=== PATIENT | male | born 1960 | race Two or more races ===

== ENCOUNTER 2023-06-05 23:34 | Emergency (ER) | payer BC, SELFPAY ==
[2023-06-05 23:52] VITALS: BP 142/84; PULSE 78; RESP 18; TEMP 37; O2SAT 96; BMI 24.2
--- NOTE | 2023-06-06 00:09 | ED_ITS ---
Prior to being discharged the patient's called me into the room because he was having bleeding from his right nostril. The patient states that his nose was really dry and he was rubbing it vigorously from the outside when it started bleeding. He is not having any bleeding from his posterior pharynx. A nasal clamp was applied and Varghese-Synephrine was instilled into the right nostril and a Merocel dressing was placed into the nostril. HPI - Abdominal Pain General Chief Complaint: Abdominal Pain Stated Complaint: ABD PAIN Time Seen by Provider: 06/06/23 00:08 Source: patient and family Mode of arrival: Wheelchair History of Present Illness HPI narrative: This 62-year-old male with a history of heavy tobacco use is brought emergency department by his significant other for evaluation of acute onset of right lower quadrant abdominal pain. The pain started abruptly around 9 PM. He is not having any nausea or vomiting. He does not have a history of kidney stones. He does have some generalized back pain. He denies any radiation of the pain into his scrotum, testicles or upper abdomen. He not been having any diarrhea. He is status post appendectomy. His also states that they were seen by a colleague of their family physician because the patient has recently lost 30 pounds and has been complaining of pain with swallowing. She did a strep screen and referred him to ENT. The patient states he has not been eating well because it hurts when he swallows and he feels that is likely why he has lost so much weight. She is concerned that he may have throat cancer. The patient's now thinks that he has a raging infection throughout his entire body. He does not have a fever. He states that he does not urinate normally because he is 63. He denies any dysuria or hematuria. Related Data Home Medications Medication Instructions Recorded Confirmed rosuvastatin 10 mg tablet (Crestor) 10 mg PO DAILY 06/05/23 06/05/23 Allergies Allergy/AdvReac Type Severity Reaction Status Date / Time No Known Drug Allergies Allergy Verified 06/05/23 23:57 Review of Systems ROS Status of ROS 10 or more systems reviewed and unremarkable except as noted in history and below PFSH PFSH Social History Smoking status: Current every day smoker Exam Narrative Exam Narrative: Nurses note and vital signs reviewed and patient is not hypoxic. General: Thin, uncomfortable appearing adult male, he is lying in a position on the stretcher, no respiratory distress, he moves easily about the stretcher and is holding his right lower quadrant and tearful. Skin: Warm, dry, no pallor noted. There is no rash noted. Head: Normocephalic, atraumatic Eye: Normal conjunctiva, no drainage, EOMI. PERRL Ears, Nose, Mouth, and Throat: oral mucosa is moist. Nares patent. Mouth without vesicles. No swelling of the tongue, uvula or pharyngeal soft tissues Neck: There are 2, firm nodules in the anterior cervical chain, one is located on the left and one is located on the right. They do not appear to be particularly mobile. They're not tender, fluctuant or erythematous. The neck is otherwise supple with no meningeal signs. Cardiovascular: Regular Rate and Rhythm, No murmurs rubs or gallops appreciated Respiratory: Patient is in no distress, no accessory muscle use, lungs are clear to auscultation, no wheezing, rales or rhonchi Back: non-tender, no CVA tenderness bilaterally to percussion. GI: Normal bowel sounds, There is a large incision in the right lower quadrant of the abdominal wall. The patient is pushing in this area stating this is where his he is having severe pain. There is no pulsatile masses. There is no reproducible tenderness in this area. There no tenderness in the right upper quadrant, left upper quadrant or left lower quadrant. There is no tenderness over the urinary bladder. The abdomen is flat. Femoral pulses are brisk and equal bilaterally Musculoskeletal: The patient has no evidence of calf tenderness, no pitting edema, symmetrical pulses noted bilaterally Neurological: A&O x4, normal speech Psychiatric: Cooperative Constitutional Vital Signs, click to edit/add: Last Vital Signs Temp 98.6 F 06/05/23 23:52 Pulse 78 06/05/23 23:52 Resp 18 06/05/23 23:52 BP 142/84 H 06/05/23 23:52 Pulse Ox 96 06/05/23 23:52 Course Course Hospital Course: Pt was medicated with IV fluids, Zofran and Dilaudid with control of his pain. After CT scan his pain recurred and he was given an additional dose of Dilaudid. Vital Signs Vital signs: Vital Signs Temperature 98.6 F 06/05/23 23:52 Pulse Rate 78 06/05/23 23:52 Respiratory Rate 18 06/05/23 23:52 Blood Pressure 142/84 H 06/05/23 23:52 Pulse Oximetry 96 06/05/23 23:52 Temperature 98.6 F 06/05/23 23:52 Pulse Rate 78 06/05/23 23:52 Respiratory Rate 18 06/05/23 23:52 Blood Pressure 142/84 H 06/05/23 23:52 Pulse Oximetry 96 06/05/23 23:52 MDM - Abdominal Pain MDM Narrative Medical decision making narrative: This 62-year-old male presents to emergency department for evaluation of acute onset of right lower quadrant abdominal pain. He is status post appendectomy in the past. He has a large well-healed incision in the right lower quadrant. His abdomen is otherwise soft. He denies any nausea or vomiting. She has normal pulses. He does appear to be in a moderate amount of pain upon arrival and an IV was placed and he was given a milligram of IV Dilaudid and Zofran as well as IV fluids. The patient's is also concerned because he has had approximately 30 pound weight loss in the past 3 months and is having pain with swallowing. He was seen by his family physician and referred to Dr. Lima , ENT, in [place] later this month. He does have 2, nontender anterior cervical lymph nodes which are concerning for malignancy. HEENT exam was otherwise normal. The patient states that he has pain with swallowing so he has not been eating much which is why he thinks that he has lost so much weight. Routine labs were ordered and are reviewed. He has a normal white count and hemoglobin. Comprehensive metabolic profile was normal. His urinalysis showed blood but no sign of infection. Consulted with radiology and ordered both a CT scan of the neck with IV contrast and CT scan of abdomen and pelvis with IV contrast. The results of the CT scans were discussed with the patient and his and they were given a copy of both CT scans. The CT scan of the abdomen and pelvis was negative with the exception of a 1.8 cm soft tissue nodular density in the left anterior posterior urinary bladder worrisome for potential neoplastic process. There was otherwise no acute findings in the right lower quadrant and the appendix was noted to be missing. The CT scan of the neck showed an enhancing irregular soft tissue mass at the level of the epiglottis extending caudally involving the right visceral space of the neck extending along the anterior midline involving the left visceral space involvement of the right posterior pharyngeal mucosal space. The mass measured approximately 3.6 cm in greatest transverse dimensions, 1.4 cm in AP dimension approximately 2.8 cm craniocaudal dimensions. 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 Further evaluation with direct visualization and are patent or CT scanning for further staging was suggested. There was also prominent lymph nodes with rounded configuration and mild enhancement along the right level III station measuring 9 mm and additional slightly enlarged lymph node in the right level for station measuring 1.2 cm suspicious for metastatic lymph nodes. The patient does have a follow-up scheduled with ENT. I suggested that he call the ear nose and throat doctor later today and try to get an appointment as soon as possible. He was also given referral information for oncology. The patient's abdominal pain seemed to be resolving. He did request something for pain if the pain should current was given a prescription for Percocet and also Colace. His right lower quadrant abdominal pain is possibly related to bowel spasm. There is no sign of any abscess, hernia or other notable abnormality in the right lower quadrant of the abdomen. To being discharged I was called to the room because the patient started having some bleeding from his right nostril. 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 He rubb ed his nose vigorously from the outside in his right nostril started bleeding. A nasal clamp was applied with control of the bleeding. I then instilled Afrin into the nose and had him gently blow to remove any clots and placed a Merocel into the nasal canal. There was no recurrent nasal bleeding after this was placed. He is instructed to gently remove the packing in 24 hours. Lab Data Labs: Lab Results 06/06/23 06/06/23 Range/Units 00:02 01:59 WBC 10.7 (4.0-11.0) 10^3/uL RBC 4.29 L (4.70-6.10) 10^6/uL Hgb 12.0 L (14.0-18.0) g/dL Hct 37.2 L (42.0-54.0) % MCV 86.7 (80.0-94.0) fL MCH 28.0 (25.9-34.0) pg MCHC 32.3 (29.9-35.2) g/dL RDW 12.9 (11.0-15.0) % Plt Count 307 (150-450) 10^3/uL MPV 10.3 (9.5-13.5) fL Neut % (Auto) 81.4 H (43.0-75.0) % Lymph % (Auto) 12.4 L (20.5-60.0) % [place] % (Auto) 5.1 (1.7-12.0) % Eos % (Auto) 0.3 L (0.9-7.0) % Baso % (Auto) 0.4 (0.2-2.0) % Neut # (Auto) 8.7 H (1.4-6.5) 10^3/uL Lymph # (Auto) 1.3 (1.2-3.8) 10^3/uL [place] # (Auto) 0.5 (0.3-0.8) 10^3/uL Eos # (Auto) 0.0 (0.0-0.7) 10^3/uL Baso # (Auto) 0.0 (0.0-0.1) 10^3/uL Abs Immat Gran (auto) 0.04 H (0.00-0.03) 10^3/uL Imm/Tot Granulo (auto) 0.4 (0.0-0.5) % Sodium 140 (136-145) mmol/L Potassium 3.9 (3.5-5.1) mmol/L Chloride 104 (98-107) mmol/L Carbon Dioxide 26.0 (21.0-32.0) mmol/L Anion Gap 13.9 BUN 16.0 (7.0-18.0) mg/dL Creatinine 1.08 (0.70-1.30) mg/dL Est GFR ( Amer) >60 (>=60) Est GFR (Non-Af Amer) >60 (>=60) BUN/Creatinine Ratio 14.8 Glucose 144 H (74-106) mg/dL Lactate 0.8 (0.4-2.0) mmol/L Calcium 9.9 (8.5-10.1) mg/dL Total Bilirubin 0.5 (0.2-1.0) mg/dL AST 17 (15-37) U/L ALT 22 (16-63) U/L Alkaline Phosphatase 88 (46-116) U/L Total Protein 8.1 (6.4-8.2) g/dL Albumin 3.5 (3.4-5.0) g/dL Globulin 4.6 g/dL Albumin/Globulin Ratio 0.8 Urine Color Yellow (YELLOW) Urine Clarity Clear (CLEAR) Urine pH 6.0 (5.0-9.0) Ur Specific [place] 1.015 (1.005-1.025) Urine Protein Negative (NEG/TRACE) mg/dL Urine Glucose (UA) Negative (NEGATIVE) mg/dL Urine Ketones Negative (NEGATIVE) mg/dL Urine Occult Blood Moderate A (NEGATIVE) Urine Nitrite Negative (NEGATIVE) Urine Bilirubin Negative (NEGATIVE) Urine Urobilinogen 0.2 (0.2-1.0) EU/dL Ur Leukocyte Esterase Negative (NEGATIVE) Urine RBC 10-20 A (0-2) #/HPF Urine WBC 0-2 A (NONE SEEN) #/HPF Ur Squamous Epith Cells None seen (NONE/RARE) #/LPF Urine Crystals None seen (None Seen) #/HPF Urine Bacteria None seen (NONE SEEN) #/HPF Urine Casts None seen (NONE SEEN) #/LPF Urine Mucus Small A (NONE SEEN) Ur Culture Indicated? No ECG Data Attestation: I personally reviewed and interpreted this ECG as follows: (Sinus rhythm at 70 beats for minute, normal axis, normal intervals, no acute ST segment elevation or T-wave inversion) Critical Care Time Critical Care Time Critical Care Time: Yes Total Critical Care Time: 40 Attestation: The patient was seen and evaluated and treated by myself Discharge Plan Discharge Chief Complaint: Abdominal Pain Clinical Impression: Abdominal pain, RLQ, Bladder mass, Neoplasm of neck, Epistaxis Patient Disposition: Home, Self-Care Time of Disposition Decision: 03:08 Condition: Good Prescriptions / Home Meds: No Action rosuvastatin [Crestor] 10 mg tablet 10 mg PO DAILY Instructions: Bladder Cancer (DC), Abdominal Pain (ED), Oropharyngeal Cancer (DC), Nosebleed (ED) Additional Instructions: Please call Dr Isa Calix, Oncology at [facility] in [place] [address] [phone] Lima to schedule an appointment as soon as possible for further evaluation of the neck mass seen on CT scan Gently remove nasal packing in 24 hours. Stand Alone Forms: Portal Instructions Referrals: Physician,Non-Staff, [Physician] - 1 week
--- NOTE | 2023-06-06 00:17 | ECG_ITS ---
The [facility] Test Date: 2023-06-06 Pat Name: DOT SHARMA Department: Room: - Gender: Male Recreational Aide: : 1960 Requested By: [id number] Order Number: [id number] Reading MD: PHYLLIS CAST Measurements Intervals [place] Rate: 78 P: 68 [place]: 158 QRS: 78 QRSD: 100 T: 73 QT: 372 QTc: 405 Interpretive Statements 1100 Sinus rhythm 9110 normal ECG No previous ECG available for comparison Electronically Signed On 06-06-2023 7:02:27 EDT by PHYLLIS CAST
[2023-06-06 00:22] LABS: Basophils Percent Auto 0.4 % (0.2-2.0); Eosinophils Percent Auto 0.3 % (0.9-7.0); Hematocrit 37.2 % (42.0-54.0); Immature Granulocytes Abs Auto 0.04 10^3/uL (0.00-0.03); Immature Granulocytes Pct Auto 0.4 % (0.0-0.5); Lymphocytes Absolute Auto 1.3 10^3/uL (1.2-3.8); Lymphocytes Percent Auto 12.4 % (20.5-60.0); Mean Corpuscular HGB Conc 32.3 g/dL (29.9-35.2); Mean Corpuscular Volume 86.7 fL (80.0-94.0); Mean Platelet Volume 10.3 fL (9.5-13.5); Monocytes Absolute Auto 0.5 10^3/uL (0.3-0.8); Monocytes Percent Auto 5.1 % (1.7-12.0); Neutrophils Absolute Auto 8.7 10^3/uL (1.4-6.5); Neutrophils Percent Auto 81.4 % (43.0-75.0); Platelet Count 307 10^3/uL (150-450); Red Blood Count 4.29 10^6/uL (4.70-6.10); Red Cell Distribution Width 12.9 % (11.0-15.0); White Blood Count 10.7 10^3/uL (4.0-11.0)
[2023-06-06 00:41] LABS: Alanine Aminotransferase 22 U/L (16-63); Albumin Globulin Ratio 0.8; Albumin Level 3.5 g/dL (3.4-5.0); Alkaline Phosphatase 88 U/L (46-116); Anion Gap 13.9; Aspartate Amino Transferase 17 U/L (15-37); BUN Creatinine Ratio 14.8; Bilirubin Total 0.5 mg/dL (0.2-1.0); Calcium 9.9 mg/dL (8.5-10.1); Chloride 104 mmol/L (98-107); Estimated GFR (African America >60 (>=60); Estimated GFR (Non-African Ame >60 (>=60); Globulin 4.6 g/dL; Glucose 144 mg/dL (74-106); Potassium 3.9 mmol/L (3.5-5.1); Sodium 140 mmol/L (136-145); Total Protein 8.1 g/dL (6.4-8.2)
[2023-06-06 00:43] LABS: Lactate/Lactic Acid 0.8 mmol/L (0.4-2.0)
[2023-06-06] MEDS: 0.9 % SODIUM CHLORIDE 1,000 ML 100 ML IV (00:49)
[2023-06-06] MEDS: ONDANSETRON PF 4 MG/2 ML VIAL IV (00:49)
[2023-06-06] MEDS: HYDROMORPHONE HCL 1 MG/ML CARTRIDGE IVP (00:50)
--- NOTE | 2023-06-06 00:58 | CT_ITS ---
The [address] [address] Patient Name: DOT SHARMA MRN: [id number] date: 1960 Sex: M Assigned Patient Location: ER Current Patient Location: Accession/Order Number: [id number] Exam Date: 06/06/2023 01:30 Report Date: 06/06/2023 02:34 At the request of: NIRANJAN MARKER Procedure: CT abdomen pelvis w con CT ABDOMEN AND PELVIS WITH CONTRAST: INDICATION: RLQ abd pain. COMPARISON: None. TECHNIQUE:Multiple thin section transaxial slices were acquired through the abdomen and pelvis with intravenous contrast. Coronal and sagittal reconstructed images were reviewed. Oral contrastWas not administered. FINDINGS: LOWER CHEST: There are dependent changes identified in the lung bases. There is also hyperinflation of the visualized lungs consistent with a degree of COPD. LIVER: The liver is unremarkable. GALLBLADDER AND BILIARY SYSTEM: No obvious ductal dilation. No calcified stones. SPLEEN: The spleen is unremarkable. PANCREAS: The pancreas is unremarkable. ADRENAL GLANDS: The adrenal glands are unremarkable. KIDNEYS AND URETERS: There is no hydronephrosis of the kidneys.There is a tiny nonobstructive left intrarenal calculus. There are no obstructing urologic calcifications in either ureter. VASCULATURE: There is atherosclerotic plaque in the abdominal aorta without aneurysm. PERITONEUM/RETROPERITONEUM: Peritoneum/retroperitoneum is unremarkable. LYMPH NODES: No suspicious lymphadenopathy. GASTROINTESTINAL TRACT: The bowel is normal in caliber.No acute inflammatory process is associated with the bowel.The appendix is absent. BLADDER: There is an abnormal soft tissue nodular density in the left inferior posterior urinary bladder measuring 1.8 cm. This is worrisome for potential neoplastic process. REPRODUCTIVE SYSTEM: Reproductive system is unremarkable. BODY WALL: There is a tiny fat-containing umbilical hernia. BONES: Osseous structures are unremarkable. CT/CT abdomen pelvis w con IMPRESSION: 1. No definitive acute inflammatory process or obstructive uropathy is identified. There is a tiny nonobstructive left intrarenal calculus. 2. Suspicious soft tissue nodular density in the inferior posterior left side of the urinary bladder worrisome for possible neoplasm. This could be further characterized with nonemergent cystoscopy. Electronically authenticated by: DAEV DUCKWORTH Date: 06/06/2023 02:34
--- NOTE | 2023-06-06 00:58 | CT_ITS ---
The [address] [address] Patient Name: DOT SHARMA MRN: [id number] date: 1960 Sex: M Assigned Patient Location: ER Current Patient Location: Accession/Order Number: [id number] Exam Date: 06/06/2023 01:30 Report Date: 06/06/2023 02:36 At the request of: NIRANJAN MARKER Procedure: CT soft tissue neck w con EXAM: CT soft tissue neck w con HISTORY: cancer staging COMPARISON: None. TECHNIQUE: Axial CT images of the soft tissues of the neck were obtained following intravenous administration of 100 cc of Omnipaque 300. Coronal and sagittal images were then acquired using the source data. Automated dose lowering techniques and/or adjustment according to patient size were utilized for this examination. FINDINGS: Mildly enhancing irregular appearing soft tissue mass visualized along the right aspect of the epiglottis with effacement of the right vallecula mass effect upon the epiglottis towards the left.. The right aspect of the epiglottis is not well-defined due to tumor infiltration. There is involvement of the right aryepiglottic fold. The mass extends caudally involving the right visceral space of the neck extending along the anterior midline involving the left visceral space. There is involvement of the right parapharyngeal mucosal space. The mass measures approximately 3.6 cm in greatest transverse dimensions, 1.4 cm in greatest AP dimension and approximately 3.8 cm in greatest craniocaudal dimensions. There is a prominent lymph node with rounded configuration and mild enhancement visualized along the right level 3 station measuring 9 mm. Additional slightly enlarged lymph nodes noted within the right level 4 Station measuring 1.2 cm, these findings are suspicious for metastatic lymph nodes. There is narrowing of the airway at this level due to the tumor. The imaged portions of the brain demonstrate no evidence for pathologic enhancement. Imaged portions of the paranasal sinuses and mastoid air cells are clear. Imaged portions of the orbits appear unremarkable. The bilateral parotids, submandibular glands appear unremarkable. 7 mm right thyroid nodule visualized, short-term follow-up with nonemergent thyroid sonogram may be done to further evaluate. Mild centrilobular and paraseptal emphysematous changes of the imaged lung rodriguez. No acute osseous abnormality visualized. No suspicious osseous lesions visualized. CT/CT soft tissue neck w con IMPRESSION: 1. Mildly enhancing irregular soft tissue mass visualized at the level of the epiglottis extending caudally involving the right visceral space of the neck extending along the anterior midline involving the left visceral space and involvement of the right posterior parapharyngeal mucosal space. The mass measures approximately 3.6 cm in greatest transverse dimensions, 1.4 cm in greatest AP dimensions and approximately 3.8 cm craniocaudal dimensions. 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 2. Prominent lymph node with rounded configuration and mild enhancement visualized along the right level 3 station measuring 9 mm. Additional slightly enlarged lymph node noted within the right level 4 Station measuring 1.2 cm, findings are suspicious for metastatic lymph nodes. Electronically authenticated by: BRENNA WITT Date: 06/06/2023 02:36
[2023-06-06 02:18] LABS: Bilirubin Urine NEGATIVE (NEGATIVE); Blood Urine MODERATE (NEGATIVE); Clarity Urine CLEAR (CLEAR); Color Urine YELLOW (YELLOW); Glucose Urine UA NEGATIVE (NEGATIVE); Ketones Urine NEGATIVE (NEGATIVE); Leukocyte Esterase Urine NEGATIVE (NEGATIVE); Nitrite Urine NEGATIVE (NEGATIVE); Protein Urine NEGATIVE (NEG/TRACE); Specific Gravity Urine 1.015 (1.005-1.025); Urobilinogen Urine 0.2 EU/dL (0.2-1.0)
[2023-06-06 02:19] LABS: Urine Microscopic Indicated YES
[2023-06-06 02:23] LABS: Bacteria Urine NONE SEEN #/HPF (NONE SEEN); WBC Urine 0-2 #/HPF (NONE SEEN)
[2023-06-06 02:24] LABS: Cast Seen? NONE SEEN #/LPF (NONE SEEN); Crystals Seen? None Seen #/HPF (None Seen); Mucus Urine SMALL (NONE SEEN); Squamous Epithelial Cell Urine NONE SEEN #/LPF (NONE/RARE); Urine Culture Indicated NO
[2023-06-06] MEDS: HYDROMORPHONE HCL 0.5 MG/0.5 ML SYRINGE 1 MG IV (02:41)
--- NOTE | 2023-06-06 03:21 | PC.NURSE ---
Pt's came out to nurses station, told Dr. Messina that the pt began having a nose bleed and was spitting blood Upon assessment pt is leaned over the side of the bed rail with his nose dripping bright red blood from bilateral nares into the trash can Pt states he was rubbing his nose because it is very dry and itchy Nasal clamp applied by this nurse Pt given a wet wash cloth and a few dry towels to clean himself up with as well as a basin to contain drainage comfortably Pt's at bedside Pt still stating that his nose is itching
[2023-06-06] MEDS: BACITRACIN OINTMENT 28.4 GM TUBE 1 APPLIC TOPICAL (03:44)
== END 2023-06-06 04:26 | disposition home or self-care (01) ==
PROVIDERS: Emergency Provider Emergency Medicine
DX: R10.31 Right lower quadrant pain (principal); R04.0 Epistaxis; N32.89 Other specified disorders of bladder; D49.89 Neoplasm of unspecified behavior of other specified sites; F17.210 Nicotine dependence, cigarettes, uncomplicated; Z79.899 Other long term (current) drug therapy
CPT/HCPCS: 36415; 70491; 74177; 80053; 81003; 81015; 83605; 85025; 93005; 96374; 96375; 96376; 99285; J1170; Q9967